=== PATIENT | female | born 1965 | race Caucasian/White ===

== ENCOUNTER 2017-07-23 15:49 | Emergency (ER) | payer MEDICARE, OTHER ==
[~2017-07-23] VITALS: Ht 167.6 cm; Wt 115.0 kg
[~2017-07-23 15:49] MED LIST: ABIL30TA5 PO; DESM1TAB8 PO; EFFE150C PO; LISI-515 PO; MELO15TA20 PO; MORP1TAB24 PO; PERC5TAB12 PO; SERO300T PO; TEMA30CA PO
[2017-07-23 16:23] VITALS: BP 181/94; PULSE 98; RESP 17; TEMP 98.5; O2SAT 98
[2017-07-23] MEDS ORDERED: OXYC-103 PO (17:53)
[2017-07-23] MEDS ORDERED: PERC7.5T13 PO (17:53)
[2017-07-23] MEDS ORDERED: SODIUM CHLOR 0.9% 1000 ML INJ 1,000 ML IV SCH (18:37)
[2017-07-23] MEDS ORDERED: SODIUM CHLORIDE 0.9% FLUSH 10 ML FLUSH IV FLUSH PRN (18:45)
[2017-07-23] MEDS ORDERED: VANCOMYCIN INJ 1,750 MG in SODIUM CHLORID 0.9% 500 ML INJ 500 ML IV ONE (18:45)
--- NOTE | 2017-07-23 18:46 | PD ---
HPI Chief Complaint: Edema Time Seen by Provider: 18:30 Travel History International Travel<30 days: No Contact w/Intl Traveler<30days: No Traveled to known affect area: No History of Present Illness HPI Patient is a 52-year-old female with history of chronic bilateral venous stasis with ulcerations to her lower extremities, hypertension, chronic pain, presents the emergency room with complaints of swelling with increased redness. Patient reports that she was recently seen in the wound care center, reports that she had knee dressings placed which had iodine to it, patient reports that a few days later, she began to notice increased redness and warmth to her bilateral lower extremities. Patient reports that swelling had increased as well. Patient was seen by her physician and was told to go directly to the emergency room as they are concerned for possible cellulitis. Patient denies any fever or chills, denies any chest pain or shortness of breath, patient reports her tetanus is up-to-date. PFSH Past Medical History Anxiety: Yes Depression: Yes Cancer: No Cardiovascular Problems: Yes Diminished Hearing: No Endocrine: No Gastrointestinal Disorders: Yes Genitourinary: No Headaches: Yes Hypertension: Yes Immune Disorder: No Implanted Vascular Access Dvce: No Musculoskeletal: No Neurologic: Yes Psychiatric: Yes Reproductive: No Respiratory: No Migraines: Yes Schizophrenia: Yes Seizures: Yes (WHEN REFUSES MEDS PER FATHER) ?: Not : 0 Para: 0 Past Surgical History Abdominal Surgery: Yes Cardiac Surgery: No Cholecystectomy: Yes Ear Surgery: No Eye Surgery: No Genitourinary Surgery: No Gynecologic Surgery: No Neurologic Surgery: No Oral Surgery: Yes Thoracic Surgery: No Tonsillectomy: Yes Other Surgery: Yes (RT ANKLE) Social History Alcohol Use: No Tobacco Use: No Substance Use: No Allergies-Medications (Allergen,Severity, Reaction): Coded Allergies: tetracycline (Verified Allergy, Severe, 07/23/17) rash ciprofloxacin (Verified Allergy, Mild, 03/28/17) doxycycline (Verified Allergy, Mild, 03/28/17) fluphenazine (Verified Allergy, Mild, 03/28/17) minocycline (Verified Allergy, Mild, 03/28/17) tigecycline (Verified Allergy, Mild, 03/28/17) Reported Meds & Prescriptions Reported Meds & Active Scripts Active Reported Oxycontin (Oxycodone HCl) 10 Mg Tab 10 Mg PO BID Percocet (Oxycodone-Acetaminophen) 7.5-325 mg Tab 1 Tab PO TID PRN Meloxicam 15 Mg Tab 15 Mg PO DAILY Ddavp (Desmopressin Acetate) 0.2 Mg Tab 0.2 Mg PO TID Seroquel (Quetiapine Fumarate) 300 Mg Tab 600 Mg PO HS Effexor XR 24 HR (Venlafaxine HCl) 150 Mg Cap 300 Mg PO DAILY Abilify (Aripiprazole) 30 Mg Tab 30 Mg PO DAILY Lisinopril 20 Mg Tab 20 Mg PO DAILY Review of Systems General / Constitutional: No: Fever Eyes: No: Visual changes HENT: No: Headaches Cardiovascular: No: Chest Pain or Discomfort Respiratory: No: Shortness of Breath Gastrointestinal: No: Abdominal Pain Genitourinary: No: Dysuria Musculoskeletal: Positive: Edema, Pain Skin: Positive Rash Neurologic: No: Weakness Psychiatric: No: Depression Endocrine: No: Polydipsia Hematologic/Lymphatic: No: Easy Bruising Physical Exam Narrative GENERAL: Mild distress SKIN: Focused skin assessment warm/dry. HEAD: Atraumatic. Normocephalic. EYES: Pupils equal and round. No scleral icterus. No injection or drainage. ENT: No nasal bleeding or discharge. Mucous membranes pink and moist. NECK: Trachea midline. No JVD. CARDIOVASCULAR: Regular rate and rhythm. No murmur appreciated. RESPIRATORY: No accessory muscle use. Clear to auscultation. Breath sounds equal bilaterally. GASTROINTESTINAL: Abdomen soft, non-tender, nondistended. Hepatic and splenic margins not palpable. MUSCULOSKELETAL: No obvious deformities. No clubbing. No cyanosis. +3 edema b/l , patient with erythema and redness to b/l lower extremities, patient with healing ulcerations to b/l lower extremities with no drainage NEUROLOGICAL: Awake and alert. No obvious cranial nerve deficits. Motor grossly within normal limits. Normal speech. PSYCHIATRIC: Appropriate mood and affect; insight and judgment normal. Data Data Last Documented VS Vital Signs Date Time Temp Pulse Resp B/P (MAP) Pulse Ox O2 Delivery O2 Flow Rate FiO2 07/23/17 19:00 105 14 148/68 (94) 97 Room Air 07/23/17 16:23 98.5 Orders Orders Complete Blood Count With Diff (07/23/17 16:25) Comprehensive Metabolic Panel (07/23/17 16:25) Prothrombin Time / Inr (Pt) (07/23/17 18:37) Act Partial Throm Time (Ptt) (07/23/17 18:37) Iv Access Insert/Monitor (07/23/17 18:37) Ecg Monitoring (07/23/17 18:37) Oximetry (07/23/17 18:37) Sodium Chlor 0.9% 1000 Ml Inj (Ns 1000 M (07/23/17 18:37) Sodium Chloride 0.9% Flush (Ns Flush) (07/23/17 18:45) Vancomycin Inj (Vancomycin Inj) (07/23/17 18:45) Us Leg Venous Doppler Bilat (07/23/17 ) MDM Medical Decision Making Medical Screen Exam Complete: Yes Emergency Medical Condition: Yes Medical Record Reviewed: Yes Interpretation(s) Vital Signs Date Time Temp Pulse Resp B/P (MAP) Pulse Ox O2 Delivery O2 Flow Rate FiO2 07/23/17 16:23 98.5 98 17 181/94 (123) 98 Differential Diagnosis Venous stasis, cellulitis, dvt Narrative Course During the course of the patients emergency department visit, the patients history, examination, and differential diagnosis were reviewed with the patient. The patient was placed on a pvc monitor with oximetry and frequent blood pressure monitoring. The patient had an IV access obtained and blood work sent for analysis. Vital Signs Date Time Temp Pulse Resp B/P (MAP) Pulse Ox O2 Delivery O2 Flow Rate FiO2 07/23/17 16:23 98.5 98 17 181/94 (123) 98 The patient was initially provided IV vancomycin Doppler US of LE's were ordered to rule out DVT patient signed out to care of oncoming physician at change of shift Bonny Cowart DO July 23, 2017 18:46
[2017-07-23 19:00] VITALS: BP 148/68; PULSE 105; RESP 14; O2SAT 97
--- NOTE | 2017-07-23 19:35 | PD ---
Physical Exam Narrative General: The patient is a well-developed well-nourished female in no acute distress. Head and Neck exam: Head is normocephalic atraumatic. Eyes: EOMI, pupils are equal round and reactive to light. Nose: Midline septum with pink mucous membranes Mouth: Dentition unremarkable. Moist mucus membranes. Posterior oropharynx is not erythematous. No tonsillar hypertrophy. Uvula midline. Airway patent. Neck: No palpable lymphadenopathy. No nuchal rigidity. No thyromegaly. Cardiovascular: Sinus tachycardia in the low 100 without murmurs, gallops, or rubs. No pulse deficit to the extremities on simultaneous auscultation and palpation of her radial artery. Lungs: Clear to auscultation bilaterally. No wheezes, rhonchi, or rales. Abdomen: Soft, without tenderness to palpation in all 4 quadrants of the abdomen. No guarding, rebound, or rigidity. Normal bowel sounds are audible. No tenderness on palpation of McBurney's point. Extremities: No clubbing or cyanosis. The patient has 1+ pitting edema of bilateral lower extremities. The patient has medial lower extremity venous stasis ulcers with a slight odor and no significant drainage. The patient has erythema from the foot up bilaterally to just below the knees. The patient has warmth and tenderness on palpation. 2+ pulses in all 4 extremities. Neurologic Exam: Grossly nonfocal. Skin Exam: No other rash noted. Intact skin that is warm and dry. Data Data Last Documented VS Vital Signs Date Time Temp Pulse Resp B/P (MAP) Pulse Ox O2 Delivery O2 Flow Rate FiO2 07/23/17 19:00 105 14 148/68 (94) 97 Room Air 07/23/17 16:23 98.5 Orders Orders Complete Blood Count With Diff (07/23/17 16:25) Comprehensive Metabolic Panel (07/23/17 16:25) Prothrombin Time / Inr (Pt) (07/23/17 18:37) Act Partial Throm Time (Ptt) (07/23/17 18:37) Iv Access Insert/Monitor (07/23/17 18:37) Ecg Monitoring (07/23/17 18:37) Oximetry (07/23/17 18:37) Sodium Chlor 0.9% 1000 Ml Inj (Ns 1000 M (07/23/17 18:37) Sodium Chloride 0.9% Flush (Ns Flush) (07/23/17 18:45) Vancomycin Inj (Vancomycin Inj) (07/23/17 18:45) Us Leg Venous Doppler Bilat (07/23/17 ) Oxycodone-Acetamin 7.5-325 Mg (Percocet (07/23/17 21:45) Piperacil-Tazo 3.375 Gm Premix (Zosyn 3. (07/23/17 21:45) Wound Care (07/23/17 23:06) Labs Laboratory Tests Test 07/23/17 21:36 White Blood Count 6.0 TH/MM3 Red Blood Count 3.97 MIL/MM3 Hemoglobin 11.9 GM/DL Hematocrit 35.8 % Mean Corpuscular Volume 90.2 FL Mean Corpuscular Hemoglobin 30.1 PG Mean Corpuscular Hemoglobin Concent 33.3 % Red Cell Distribution Width 13.1 % Platelet Count 253 TH/MM3 Mean Platelet Volume 7.5 FL Neutrophils (%) (Auto) 63.4 % Lymphocytes (%) (Auto) 26.7 % Monocytes (%) (Auto) 7.8 % Eosinophils (%) (Auto) 1.1 % Basophils (%) (Auto) 1.0 % Neutrophils # (Auto) 3.8 TH/MM3 Lymphocytes # (Auto) 1.6 TH/MM3 Monocytes # (Auto) 0.5 TH/MM3 Eosinophils # (Auto) 0.1 TH/MM3 Basophils # (Auto) 0.1 TH/MM3 CBC Comment DIFF FINAL Differential Comment Prothrombin Time 10.0 SEC Prothromb Time International Ratio 1.0 RATIO Activated Partial Thromboplast Time 27.4 SEC Blood Urea Nitrogen 12 MG/DL Creatinine 0.81 MG/DL Random Glucose 88 MG/DL Total Protein 6.6 GM/DL Albumin 3.2 GM/DL Calcium Level 8.5 MG/DL Alkaline Phosphatase 129 U/L Aspartate Amino Transf (AST/SGOT) 22 U/L Alanine Aminotransferase (ALT/SGPT) 21 U/L Total Bilirubin 0.3 MG/DL Sodium Level 139 MEQ/L Potassium Level 4.0 MEQ/L Chloride Level 102 MEQ/L Carbon Dioxide Level 26.8 MEQ/L Anion Gap 10 MEQ/L Estimat Glomerular Filtration Rate 74 ML/MIN [facility] Medical Record Reviewed: Yes Supervised Visit with DENYS: No Narrative Course During the course of the patient's emergency department visit, the patient's history, examination, and differential diagnosis were reviewed with the patient. The patient was placed on a color television console monitor with oximetry and frequent blood pressure monitoring. The patient had IV access obtained and blood work sent for analysis. The patient's case was checked out to me by Dr. Cowart. Please see her complete history and physical. The patient's case was checked out to me at the conclusion of her shift. The patient presents with a history of having an iodine bandage applied and wound care for chronic venous stasis ulcers for the first time on Saturday. She reports that throughout the night she had a burning sensation over the wounds. She reports that on Saturday she noticed that she was developing redness that was spreading up bilateral legs. She reports that there was an odor noted to the areas of ulceration. She was unsure of whether she was having a reaction to the iodine, or had an infection. She denies being on any antibiotic. She has had these ulcers for approximately a year and has been in wound care for approximately a year. The patient was initially provided normal saline 1 L IV fluid bolus, vancomycin , Zosyn IV. For pain the patient was given Percocet as she normally is on Percocet at home The patient's laboratory studies were reviewed and remarkable for a white count of 6, hemoglobin 11.9, platelets 253 with 63.4 neutrophils, lymphocytes 26.7, PT 10, INR 1.0, PTT 27.4. CMP is within normal limits except for an alk phos of 129, albumin 3.2, GFR 74. Radiology studies were reviewed and remarkable for a bilateral lower extremity ultrasound that is negative for DVT. The patient was offered admission for observation, however she prefers to follow -up as an outpatient as she has wound care scheduled for tomorrow and again on Saturday. Her family members are at the bedside and will assist her with her care. She was instructed that if she develops any fevers, chills, nausea vomiting or inability to keep down her antibiotic, or progression of redness, pain, or swelling to her leg she should report back immediately to the emergency department. The patient will be discharged home on Bactrim and Keflex. The patient is resting comfortably and feels better, is alert and in no distress. The patient's results and examination findings were discussed with the patient. The repeat examination is unremarkable and benign. The history, exam, diagnostic testing, and current condition do not suggest any significant pathology to warrant further testing, continued ED treatment, admission, or surgical evaluation at this point. The vital signs have been stable. The patient does not have uncontrollable pain, intractable vomiting, or other significant symptoms. The patient's condition is stable and appropriate for discharge. The patient will pursue further outpatient evaluation with a primary care physician or other designated or consulting physician as indicated in the discharge instructions. The patient is instructed to report back to the emergency department immediately for reexamination in the mean time if he/ she develops any new or worsening signs or symptoms. The patient expressed understanding and was agreeable with this plan. Sepsis Criteria SIRS Criteria (2 or more): Heart rate over 90 Diagnosis Primary Impression: Cellulitis Qualified Codes: L03.119 - Cellulitis of unspecified part of limb Referrals: Primary Care Physician 1 day Patient Instructions: Cellulitis (ED), General Instructions Med/Other Pt SpecificInfo: Prescription(s) given Scripts Cephalexin (Keflex) 500 Mg Capsule 500 MG PO QID for Infection for 10 Days, CAP 0 Refills Prov: Renay Angel MD 07/23/17 Sulfamethoxazole-Trimethoprim (Bactrim DS) 800-160 Mg Tab 1 TAB PO BID for Infection, #20 TAB 0 Refills Prov: Renay Angel MD 07/23/17 Disposition: 01 DISCHARGE HOME Condition: Stable Renay Angel MD July 23, 2017 19:35
--- NOTE | 2017-07-23 20:45 | RADRPT ---
EXAM DATE: 07/23/2017 8:39 PM EDT AGE/SEX: 52 years / Female INDICATIONS: Bilateral leg swelling. CLINICAL DATA: This is the patient's initial encounter. Patient reports that signs and symptoms have been present for 4 - 6 days and indicates a pain score of 8/10. MEDICAL/SURGICAL HISTORY: Hypertension. Glasses. Seizures. Asthma. Depression. Schizophrenia. A nxiety. Tonsillectomy. Cholecystectomy. Right ankle surgery. COMPARISON: No prior [facility] exams available for comparison. TECHNIQUE: Venous ultrasound of both lower extremities was performed from the inguinal ligament to t he proximal calf. Real-time, color Doppler and spectral tracing, compression and augmentation techni ques were used. FINDINGS: Right Leg: There is normal compressibility of the deep venous system from the inguinal region to the proximal calf. No echogenic clot is seen in the lumen of the common femoral, femoral, and popliteal veins. The posterior tibial vein was not imaged. Distal augmentation was not performed. Left Leg: There is normal compressibility of the deep venous system from the inguinal region to the proximal calf. No echogenic clot is seen in the lumen of the common femoral, femoral, and popliteal veins. The posterior tibial vein was not imaged. Distal augmentation was not performed. CONCLUSION: 1. There is no imaging evidence for deep venous thrombosis from the inguinal region to the popliteal . Electronically signed by: Richard Wallace MD 07/23/2017 8:44 PM EDT
[2017-07-23] MEDS ORDERED: PIPERACIL-TAZO 3.375 GM PREMIX 50 ML IV ONE (21:45)
[2017-07-23] MEDS ORDERED: oxyCODONE/ACETAMINOPHEN 7.5 MG/325 MG TAB PO ONE (21:45)
[2017-07-23 22:19] LABS: AUTOMATED NEUTROPHIL # 3.8 TH/MM3 (1.8-7.7); BASOPHIL # 0.1 TH/MM3 (0-0.2); EOSINOPHIL # 0.1 TH/MM3 (0-0.4); EOSINOPHIL % 1.1 % (0.0-4.0); HEMATOCRIT 35.8 % (35.0-46.0); HEMOGLOBIN 11.9 GM/DL (11.6-15.3); LYMPH % 26.7 % (9.0-44.0); LYMPHOCYTE # 1.6 TH/MM3 (1.0-4.8); MEAN CELL VOLUME 90.2 FL (80.0-100.0); MEAN CORPUSCULAR HEMOGLOBIN 30.1 PG (27.0-34.0); MEAN CORPUSCULAR HGB CONC 33.3 % (32.0-36.0); MEAN PLATELET VOLUME 7.5 FL (7.0-11.0); MONO % 7.8 % (0.0-8.0); MONOCYTE # 0.5 TH/MM3 (0-0.9); NEUT % 63.4 % (16.0-70.0); PLATELET COUNT 253 TH/MM3 (150-450); RED BLOOD COUNT 3.97 MIL/MM3 (4.00-5.30); RED CELL DISTRIBUTION WIDTH 13.1 % (11.6-17.2)
[2017-07-23 22:50] LABS: ALKALINE PHOSPHATASE 129 U/L (45-117); ALT (GPT) 21 U/L (10-53); TOTAL BILIRUBIN ADULT 0.3 MG/DL (0.2-1.0); TOTAL PROTEIN 6.6 GM/DL (6.4-8.2)
[2017-07-23 22:53] LABS: ALBUMIN 3.2 GM/DL (3.4-5.0); AST (GOT) 22 U/L (15-37); BICARBONATE 26.8 MEQ/L (21.0-32.0); BLOOD UREA NITROGEN 12 MG/DL (7-18); CALCIUM 8.5 MG/DL (8.5-10.1); CHLORIDE 102 MEQ/L (98-107); CREATININE 0.81 MG/DL (0.50-1.00); GLOMERULAR FILTRATION RATE 74 ML/MIN (>89); GLUCOSE,RANDOM 88 MG/DL (74-106); SODIUM (NA) 139 MEQ/L (136-145)
[2017-07-23] MEDS ORDERED: BACT800T5 PO (23:12)
[2017-07-23] MEDS ORDERED: CEPH-460 PO (23:12)
== END 2017-07-23 23:51 | disposition home or self-care (01) ==
LOC: NEPE 15:49
DX: L03.119 Cellulitis of unspecified part of limb (principal); M79.89 Other specified soft tissue disorders; I10 Essential (primary) hypertension; F20.9 Schizophrenia, unspecified; Z79.899 Other long term (current) drug therapy
CPT/HCPCS: 80053; 85025; 85610; 85730; 93970; 96374; 96375; 99284; J2543; J3370; J7030; J7040